=== PATIENT | male | born 1970 | race Caucasian/White ===

== ENCOUNTER 2024-11-26 22:19 | Inpatient (IN) | payer BC ==
[~2024-11-26] VITALS: Ht 177.8 cm; Wt 90.0 kg
[2024-11-27] MEDS: MORPHINE SULFATE 4 MG/ML INJ (FOR IV/IM USE) IV STA (00:30)
[2024-11-27] MEDS: PANTOPRAZOLE SODIUM 40 MG/VIAL IV STA (00:30)
[2024-11-27] MEDS: ONDANSETRON HCL 4MG/2ML INJ IV STA (00:30)
[2024-11-27] MEDS: LABETALOL 5MG/ML 4ML INJ IV ONE (00:31)
[2024-11-27 00:50] LABS: BASOPHILS % 1.3 % (0.0-2.0); EOSINOPHILS % 0.1 % (0.0-5.0); HEMATOCRIT. 35.4 % (42.0-52.0); HEMOGLOBIN. 12.1 g/dL (14.0-18.0); LYMPHOCYTES % 8.7 % (20.0-50.0); MEAN CORPUSCULAR HEMOGLOBIN 27.8 pg (28.0-32.0); MEAN CORPUSCULAR HGB CONC 34.2 g/dL (31.0-37.0); MEAN CORPUSCULAR VOLUME 81.4 fL (80.0-94.0); MEAN PLATELET VOLUME 9.7 fl (7.4-10.4); MONOCYTES % 4.6 % (2.0-8.0); NEUTROPHILS % 85.3 % (40.0-76.0); PLATELET 343 x1000/uL (130-400); RED BLOOD CELL COUNT 4.35 mill/uL (4.7-6.1); RED CELL DISTRIBUTION WIDTH 13.7 % (11.6-14.6); WHITE BLOOD COUNT 14.2 x1000/uL (4.5-11.0)
[2024-11-27 00:52] LABS: CHLORIDE 111 mEq/L (98-107); POTASSIUM 3.3 mEq/L (3.5-5.1); SODIUM 145 mEq/L (136-145)
[2024-11-27 00:53] LABS: CALCIUM 8.6 mg/dL (8.7-10.4); CARBON DIOXIDE 26 mEq/L (21-32)
[2024-11-27 00:58] LABS: CREATININE 1.9 mg/dL (0.6-1.3); GLUCOSE 131 mg/dL (70-105); UREA NITROGEN BLOOD 16 mg/dL (9-23)
[2024-11-27 00:59] LABS: TROPONIN I HIGH SENSITIVITY 29 ng/L (3.0-53)
[2024-11-27 01:00] LABS: ALANINE AMINOTRANSFERASE 14 IU/L (10-49); ALBUMIN 3.4 g/dL (3.2-4.8); ASPARTATE AMINOTRANSFERASE 21 IU/L (<34); BILIRUBIN DIRECT 0.1 mg/dL (<=3.0); BILIRUBIN TOTAL 0.5 mg/dL (0.1-1.0); PROTEIN TOTAL 5.4 g/dL (6.0-8.3)
[2024-11-27 01:14] LABS: INR 0.9; PROTHROMBIN TIME 10.2 sec (9.6-11.0)
[2024-11-27 01:35] LABS: TROPONIN I HIGH SENSITIVITY 32 ng/L (3.0-53)
[2024-11-27] MEDS: IOHEXOL-300 100 ML BOTTLE ONE (03:18)
[2024-11-27 03:43] LABS: CLARITY URINE CLEAR (CLEAR); COLOR URINE YELLOW (YELLOW); GLUCOSE URINE TRACE (NEGATIVE); KETONES URINE NEGATIVE (NEGATIVE); LEUKOCYTE ESTERASE URINE NEGATIVE (NEGATIVE); NITRITE URINE NEGATIVE (NEGATIVE); OCCULT BLOOD URINE 2+ (NEGATIVE); PH URINE 6.5 (4.5-8.0); PROTEIN URINE 4+ (NEGATIVE); SPECIFIC GRAVITY URINE 1.039 (1.005-1.030); UROBILINOGEN URINE 0.2 E.U./dL (0.2-1.0)
[2024-11-27] MEDS ORDERED: ONDANSETRON HCL 4MG/2ML INJ IV PRN (05:00)
[2024-11-27] MEDS ORDERED: IPRATROPIUM/ALBUTEROL 0.5-3(2.5)MG/3ML NEB HHN PRN (05:00)
[2024-11-27] MEDS ORDERED: NITROGLYCERIN 0.4MG TABLET SL SL PRN (05:30)
[2024-11-27] MEDS ORDERED: LABETALOL 5MG/ML 4ML INJ IV PRN (05:30)
[2024-11-27] MEDS: HYDRALAZINE 20MG/ML VIAL IV PRN (05:34)
[2024-11-27] MEDS: MORPHINE SULFATE 2 MG/ML INJ (NOT FOR IM USE) IV NR ×2 (05:35→09:27)
[2024-11-27] MEDS: KCL 20MEQ/100ML PREMIX 100 ML IV NR (05:41)
[2024-11-27 05:45] LABS: AMYLASE 60 IU/L (30-118); CREATINE KINASE MB FRACTION 0.9 ng/mL (0.5-3.6)
[2024-11-27 05:47] LABS: ETHANOL BLOOD < 10 mg/dL (<10)
[2024-11-27 05:48] LABS: BACTERIA URINE NONE SEEN; RBC URINE 0-2 /hpf (0-2); SQUAMOUS EPITHELIAL CELL URINE NONE SEEN /lpf (RARE/1+)
[2024-11-27 05:49] LABS: FINE GRANULAR CASTS URINE 0-5 /lpf; HYALINE CASTS URINE 0-5 /lpf
[2024-11-27] MEDS: LACTATED RINGERS 1,000 ML IV SCH (05:51)
[2024-11-27] MEDS: CEFTRIAXONE 1GM/50ML 50 ML IV SCH (06:38)
[2024-11-27] MEDS: IOHEXOL-350 100 ML BOTTLE ONE (07:19)
[2024-11-27] MEDS ORDERED: PANTOPRAZOLE SODIUM 40 MG/VIAL IV SCH (09:00)
[2024-11-27] MEDS: LABETALOL 5MG/ML 4ML INJ IV NR (09:32)
[2024-11-27 10:00] VITALS: BP 163/106; PULSE 88; RESP 17; TEMP 36.8072
[2024-11-27] MEDS: CLONIDINE 0.1MG TABLET PO SCH (10:25)
[2024-11-27] MEDS: PANTOPRAZOLE SODIUM 40 MG/VIAL IV SCH (10:26)
[2024-11-27] MEDS ORDERED: OMEP20CA14 MT (11:39)
[2024-11-27] MEDS ORDERED: FURO40TA5 MT (11:39)
[2024-11-27] MEDS ORDERED: ATOR10TA69 MT (11:39)
[2024-11-27] MEDS ORDERED: AMLO10TA80 MT (11:39)
[2024-11-27] MEDS ORDERED: CLON0.3T MT (11:39)
[2024-11-27] MEDS ORDERED: LISI40TA13 MT (11:39)
[2024-11-27 12:00] VITALS: BP 151/91; PULSE 75; RESP 18; TEMP 36.72516; O2SAT 96
[2024-11-27] MEDS ORDERED: KETOROLAC 15MG/ML VIAL IV PRN (12:45)
[2024-11-27 16:15] LABS: *AMPHETAMINES SCREEN URINE NEGATIVE (NEGATIVE); *BARBITURATES SCREEN URINE NEGATIVE (NEGATIVE); *BENZODIAZEPINES SCREEN URINE NEGATIVE (NEGATIVE); *COCAINE SCREEN URINE NEGATIVE (NEGATIVE)
[2024-11-27 16:16] LABS: CANNABINOID URINE SCREEN NEGATIVE (NEGATIVE); ECSTASY MDMA SCREEN URINE NEGATIVE (NEGATIVE); METHADONE URINE SCREEN NEGATIVE (NEGATIVE); OPIATES URINE SCREEN PRESUMPTIVE POSITIVE (NEGATIVE); PHENCYCLIDINE URINE SCREEN NEGATIVE (NEGATIVE)
[2024-11-27 16:17] LABS: CREATINE KINASE MB FRACTION 0.7 ng/mL (0.5-3.6)
[2024-11-27 16:30] VITALS: BP 169/106; PULSE 72; RESP 14; TEMP 36.83628; O2SAT 97
[2024-11-27 16:34] LABS: HEPATITIS B SURFACE ANTIGEN NEGATIVE (Negative)
[2024-11-27 16:55] LABS: HEPATITIS C AB NON REACTIVE (Neg) (Negative)
[2024-11-27] MEDS ORDERED: PNEUMOCOCCAL 20-VAL CONJ-DIP CRM 0.5ML IM ONE (18:00)
[2024-11-27] MEDS ORDERED: INFLUENZA VACCINE 05/PF 0.5 ML SYRINGE IM ONE (18:00)
[2024-11-27] MEDS: LOSARTAN 50 MG TABLET PO SCH (18:46)
[2024-11-27] MEDS: ACETAMINOPHEN 325MG TABLET PO PRN (18:55)
[2024-11-27 20:00] VITALS: BP 160/99; PULSE 72; RESP 15; TEMP 36.61404; O2SAT 97
[2024-11-28] VITALS (7 sets, daily range): BP systolic 157–187; BP diastolic 95–110; PULSE 64–88; RESP 11–18; TEMP 36.72516–36.9474; O2SAT 97–100
[2024-11-28] MEDS: CEFTRIAXONE 1GM/50ML 50 ML IV SCH (06:15)
[2024-11-28 07:22] LABS: POTASSIUM 3.8 mEq/L (3.5-5.1)
[2024-11-28 07:23] LABS: CALCIUM 8.3 mg/dL (8.7-10.4)
[2024-11-28 07:28] LABS: CREATININE 1.9 mg/dL (0.6-1.3)
[2024-11-28 07:29] LABS: AMYLASE 57 IU/L (30-118)
[2024-11-28 07:33] LABS: T4 FREE 0.79 ng/dL (0.89-1.76); THYROID STIMULATING HORMONE 9.98 uIU/mL (0.55-4.78)
[2024-11-28 08:23] LABS: BASOPHILS % 2.1 % (0.0-2.0); EOSINOPHILS % 2.7 % (0.0-5.0); HEMATOCRIT. 32.3 % (42.0-52.0); HEMOGLOBIN. 10.9 g/dL (14.0-18.0); LYMPHOCYTES % 18.5 % (20.0-50.0); MEAN CORPUSCULAR HEMOGLOBIN 27.9 pg (28.0-32.0); MEAN CORPUSCULAR HGB CONC 33.9 g/dL (31.0-37.0); MEAN CORPUSCULAR VOLUME 82.2 fL (80.0-94.0); MEAN PLATELET VOLUME 9.9 fl (7.4-10.4); MONOCYTES % 8.4 % (2.0-8.0); NEUTROPHILS % 68.3 % (40.0-76.0); PLATELET 268 x1000/uL (130-400); RED BLOOD CELL COUNT 3.92 mill/uL (4.7-6.1); WHITE BLOOD COUNT 8.4 x1000/uL (4.5-11.0)
[2024-11-28] MEDS: AMLODIPINE 10MG TABLET PO SCH (08:24)
[2024-11-28] MEDS: LABETALOL 5MG/ML 4ML INJ IV NR (18:19)
[2024-11-28] MEDS: HYDRALAZINE HCL 50MG TABLET PO SCH (22:28)
[2024-11-29] VITALS: BP 154/85; PULSE 88; RESP 18; TEMP 36.78072; O2SAT 98
[2024-11-29] MEDS ORDERED: IOHEXOL-300 100 ML BOTTLE ONE (00:07)
[2024-11-29 04:00] VITALS: BP 156/83; PULSE 75; RESP 16; TEMP 37.00296; O2SAT 97
[2024-11-29 06:00] VITALS: BP 141/87; PULSE 89; RESP 23; TEMP 36.89184; O2SAT 95
[2024-11-29] MEDS ORDERED: HYDR100T11 MT (07:40)
[2024-11-29 07:42] LABS: POTASSIUM 3.4 mEq/L (3.5-5.1)
[2024-11-29 07:44] LABS: CALCIUM 8.1 mg/dL (8.7-10.4)
[2024-11-29 07:48] LABS: CREATININE 1.8 mg/dL (0.6-1.3)
[2024-11-29 07:49] LABS: BASOPHILS % 1.4 % (0.0-2.0); EOSINOPHILS % 2.1 % (0.0-5.0); HEMATOCRIT. 31.8 % (42.0-52.0); HEMOGLOBIN. 10.8 g/dL (14.0-18.0); LYMPHOCYTES % 16.8 % (20.0-50.0); MEAN CORPUSCULAR HEMOGLOBIN 27.7 pg (28.0-32.0); MEAN CORPUSCULAR HGB CONC 33.8 g/dL (31.0-37.0); MEAN CORPUSCULAR VOLUME 82.1 fL (80.0-94.0); MEAN PLATELET VOLUME 9.4 fl (7.4-10.4); MONOCYTES % 8.1 % (2.0-8.0); NEUTROPHILS % 71.6 % (40.0-76.0); PLATELET 296 x1000/uL (130-400); RED BLOOD CELL COUNT 3.88 mill/uL (4.7-6.1); RED CELL DISTRIBUTION WIDTH 13.9 % (11.6-14.6); WHITE BLOOD COUNT 8.8 x1000/uL (4.5-11.0)
[2024-11-29 08:00] VITALS: BP 127/75; PULSE 112; RESP 15; TEMP 36.6696; O2SAT 99
[2024-11-29] MEDS ORDERED: CLON-493 MT (09:28)
[2024-11-29 12:00] VITALS: BP 130/60; PULSE 105; RESP 18; TEMP 36.6696; TEMP 36.66960; O2SAT 98
[2024-11-29] MEDS ORDERED: HYDRALAZINE HCL 100MG TABLET PO SCH (14:00)
[2024-12-05] MEDS ORDERED: CLONIDINE HCL 0.1MG/24HR PATCH TD SCH (09:00)
== END 2024-11-29 13:09 | disposition home or self-care (01) | DRG 872 ==
LOC: ER 22:19 → 3WST 11-27 03:46
PROVIDERS: ADMIT Internal Medicine; ATTEND Internal Medicine
DX: A41.9 Sepsis, unspecified organism (principal); N17.9 Acute kidney failure, unspecified; I16.0 Hypertensive urgency; D64.9 Anemia, unspecified; E78.5 Hyperlipidemia, unspecified; E66.01 Morbid (severe) obesity due to excess calories; E87.6 Hypokalemia; K21.9 Gastro-esophageal reflux disease without esophagitis; Z68.30 Body mass index [BMI] 30.0-30.9, adult; I50.9 Heart failure, unspecified; I11.0 Hypertensive heart disease with heart failure; Z79.899 Other long term (current) drug therapy
CPT/HCPCS: 36415; 71045; 74174; 74177; 76770; 80048; 80076; 80305; 80320; 81003; 82150; 82550; 82553; 83605; 83880; 84145; 84439; 84443; 84478; 84484; 85025; 85379; 86705; 87340; 93005; 93306; 99285; J0360; J0696; J2270; J2405; J2470; J3480; J3490; Q9967; G0480

== ENCOUNTER 2025-07-14 01:06 | Inpatient (IN) | payer BC ==
[~2025-07-14] VITALS: Ht 175.3 cm; Wt 98.0 kg
[~2025-07-14 01:06] MED LIST: AMLO10TA80 MT; ATOR10TA69 MT; CLON-493 MT; CLON0.3T MT; FURO40TA5 MT; HYDR100T11 MT; LISI40TA21 MT; OMEP20CA14 MT
[2025-07-14 01:10] VITALS: O2SAT 99
[2025-07-14 01:44] LABS: CLARITY URINE CLOUDY (CLEAR); COLOR URINE YELLOW (YELLOW); GLUCOSE URINE TRACE (NEGATIVE); KETONES URINE TRACE (NEGATIVE); LEUKOCYTE ESTERASE URINE TRACE (NEGATIVE); NITRITE URINE NEGATIVE (NEGATIVE); OCCULT BLOOD URINE NEGATIVE (NEGATIVE); PH URINE 5.5 (4.5-8.0); PROTEIN URINE 4+ (NEGATIVE); SPECIFIC GRAVITY URINE 1.027 (1.005-1.030); UROBILINOGEN URINE 0.2 E.U./dL (0.2-1.0)
[2025-07-14] MEDS: ONDANSETRON HCL 4MG/2ML INJ IV ONE ×2 (02:07→05:37)
[2025-07-14] MEDS: MORPHINE SULFATE 4 MG/ML INJ (FOR IV/IM USE) IV ONE ×2 (02:07→05:37)
[2025-07-14 02:40] LABS: HEMATOCRIT. 34.3 % (42.0-52.0); HEMOGLOBIN. 11.6 g/dL (14.0-18.0); MEAN PLATELET VOLUME 10.3 fl (7.4-10.4); PLATELET 279 x1000/uL (130-400); RED BLOOD CELL COUNT 4.25 mill/uL (4.7-6.1); RED CELL DISTRIBUTION WIDTH 13.8 % (11.6-14.6)
[2025-07-14 02:52] LABS: TROPONIN I HIGH SENSITIVITY 31 ng/L (3.0-53); UREA NITROGEN BLOOD 30 mg/dL (9-23)
[2025-07-14 02:54] LABS: ASPARTATE AMINOTRANSFERASE 37 IU/L (<34)
[2025-07-14 02:55] LABS: BILIRUBIN DIRECT 0.2 mg/dL (<=3.0); BILIRUBIN TOTAL 0.8 mg/dL (0.1-1.0); PROTEIN TOTAL 5.3 g/dL (6.0-8.3)
[2025-07-14] MEDS: SODIUM CHLORIDE 0.9% (SEPSIS BOLUS) IV ONE (03:09)
[2025-07-14] MEDS: PIPERACILLIN/TAZO 3.375G/50ML 50 ML IV ONE (03:11)
[2025-07-14 03:31] LABS: CREATININE 2.4 mg/dL (0.6-1.3)
[2025-07-14] MEDS: VANCOMYCIN 1G PREMIX 200 ML IV ONE (03:42)
[2025-07-14 03:43] LABS: TROPONIN I HIGH SENSITIVITY 32 ng/L (3.0-53)
[2025-07-14 04:07] LABS: RBC URINE 0-2 /hpf (0-2)
[2025-07-14 04:09] LABS: BACTERIA URINE TRACE; SQUAMOUS EPITHELIAL CELL URINE NONE SEEN /lpf (RARE/1+)
[2025-07-14 04:10] LABS: HYALINE CASTS URINE 0-5 /lpf
[2025-07-14 05:23] LABS: BAND% 1.0 % (1.0-6.0); LYMPHOCYTES % MANUAL 9.0 % (20.0-50.0); MONOCYTES % MANUAL 1.0 % (2.0-8.0); NEUTROPHILS % MANUAL 89.0 % (45.0-75.0)
[2025-07-14 05:24] LABS: PLATELET ESTIMATE NORMAL
[2025-07-14 08:35] VITALS: BP 158/96; PULSE 92; RESP 18; TEMP 36.7; TEMP 36.7516; O2SAT 97
[2025-07-14] MEDS ORDERED: MORPHINE SULFATE 2 MG/ML INJ (NOT FOR IM USE) IV PRN (10:00)
[2025-07-14] MEDS ORDERED: IPRATROPIUM/ALBUTEROL 0.5-3(2.5)MG/3ML NEB NEB PRN (10:00)
[2025-07-14] MEDS ORDERED: ENOXAPARIN 40MG/0.4ML SYR SUBCUT SCH (10:00)
[2025-07-14] MEDS ORDERED: ONDANSETRON HCL 4MG/2ML INJ IV PRN (10:00)
[2025-07-14] MEDS ORDERED: ACETAMINOPHEN 650MG/20.3ML UDC GT PRN (10:00)
[2025-07-14] MEDS ORDERED: METR-167 PO (10:02)
[2025-07-14] MEDS ORDERED: FERR325T6 MT (10:02)
[2025-07-14] MEDS ORDERED: TETR-65 PO (10:02)
[2025-07-14] MEDS ORDERED: CLON0.2T PO (10:02)
[2025-07-14] MEDS: ENOXAPARIN 30MG/0.3ML SYR SUBCUT SCH (10:19)
[2025-07-14] MEDS: SODIUM CHLORIDE 0.9% 1,000 ML IV SCH (10:20)
[2025-07-14] MEDS ORDERED: NALOXONE HCL 0.4MG/ML VIAL IV PRN (10:45)
[2025-07-14] MEDS: FUROSEMIDE 40MG/4 ML UDC PO SCH (11:45)
[2025-07-14] MEDS: AMLODIPINE 10MG TABLET PO SCH (11:45)
[2025-07-14] MEDS: VANCOMYCIN 1GM PMX (XELLIA) 200 ML IV SCH (11:45)
[2025-07-14] MEDS: CLONIDINE 0.2MG TABLET PO SCH (11:45)
[2025-07-14] MEDS: PANTOPRAZOLE 40MG DR TABLET PO SCH (11:49)
[2025-07-14 12:01] VITALS: BP 171/98; PULSE 91; RESP 20; TEMP 36.8; O2SAT 97
[2025-07-14 12:50] LABS: CLARITY URINE CLEAR (CLEAR); COLOR URINE YELLOW (YELLOW); GLUCOSE URINE NEGATIVE (NEGATIVE); KETONES URINE NEGATIVE (NEGATIVE); LEUKOCYTE ESTERASE URINE NEGATIVE (NEGATIVE); NITRITE URINE NEGATIVE (NEGATIVE); OCCULT BLOOD URINE TRACE (NEGATIVE); PH URINE 5.5 (4.5-8.0); PROTEIN URINE 4+ (NEGATIVE); SPECIFIC GRAVITY URINE 1.021 (1.005-1.030); UROBILINOGEN URINE 0.2 E.U./dL (0.2-1.0)
[2025-07-14 13:23] LABS: TRIGLYCERIDE 268.0 mg/dL (0-150)
[2025-07-14 13:24] LABS: LDL CHOLESTEROL 52.0 mg/dL (5-100)
[2025-07-14 13:30] VITALS: BP 122/79; PULSE 78; RESP 18; O2SAT 98
[2025-07-14 13:45] LABS: BACTERIA URINE NONE SEEN; RBC URINE 0-2 /hpf (0-2); SQUAMOUS EPITHELIAL CELL URINE RARE /lpf (RARE/1+); WBC URINE 0-2 /hpf (0-2); YEAST URINE NONE SEEN
[2025-07-14 16:05] VITALS: BP 143/90; PULSE 74; RESP 18; TEMP 36.8; O2SAT 98
[2025-07-14 20:00] VITALS: BP 146/87; PULSE 69; RESP 18; TEMP 36.2; O2SAT 97
[2025-07-15] VITALS (8 sets, daily range): BP systolic 108–138; BP diastolic 60–83; PULSE 54–65; RESP 18–20; TEMP 36.2–37.2; O2SAT 97–99
[2025-07-15 09:31] LABS: BASOPHILS % 1.7 % (0.0-2.0); EOSINOPHILS % 4.6 % (0.0-5.0); HEMATOCRIT. 29.4 % (42.0-52.0); HEMOGLOBIN. 9.9 g/dL (14.0-18.0); LYMPHOCYTES % 20.3 % (20.0-50.0); MEAN PLATELET VOLUME 10.4 fl (7.4-10.4); MONOCYTES % 7.9 % (2.0-8.0); NEUTROPHILS % 65.5 % (40.0-76.0); PLATELET 173 x1000/uL (130-400); RED BLOOD CELL COUNT 3.52 mill/uL (4.7-6.1); RED CELL DISTRIBUTION WIDTH 13.8 % (11.6-14.6)
[2025-07-15 09:45] LABS: CREATININE 2.1 mg/dL (0.6-1.3)
[2025-07-15 09:46] LABS: UREA NITROGEN BLOOD 23 mg/dL (9-23)
[2025-07-15 09:47] LABS: ASPARTATE AMINOTRANSFERASE 29 IU/L (<34)
[2025-07-15 09:48] LABS: BILIRUBIN TOTAL 0.6 mg/dL (0.1-1.0); PROTEIN TOTAL 4.5 g/dL (6.0-8.3)
[2025-07-15] MEDS: VANCOMYCIN 1GM PMX (XELLIA) 200 ML IV SCH (14:33)
[2025-07-15] MEDS: CEFTRIAXONE 1GM/50ML 50 ML IV SCH (15:39)
[2025-07-15] MEDS: ACETAMINOPHEN 325MG TABLET PO PRN (21:23)
[2025-07-15] MEDS: METRONIDAZOLE 500MG TABLET PO SCH (21:23)
[2025-07-16] VITALS: BP 138/79; PULSE 59; RESP 18; TEMP 36.3; O2SAT 96
[2025-07-16 04:00] VITALS: BP 121/69; PULSE 61; RESP 18; TEMP 36.6; O2SAT 98
[2025-07-16 08:00] VITALS: BP 126/69; PULSE 62; RESP 19; TEMP 36.4; O2SAT 97
[2025-07-16 08:12] LABS: CREATININE 2.0 mg/dL (0.6-1.3); UREA NITROGEN BLOOD 21 mg/dL (9-23)
[2025-07-16 08:13] LABS: BASOPHILS % 2.2 % (0.0-2.0); EOSINOPHILS % 8.7 % (0.0-5.0); HEMATOCRIT. 27.7 % (42.0-52.0); HEMOGLOBIN. 9.3 g/dL (14.0-18.0); LYMPHOCYTES % 30.2 % (20.0-50.0); MEAN PLATELET VOLUME 10.2 fl (7.4-10.4); MONOCYTES % 10.7 % (2.0-8.0); NEUTROPHILS % 48.2 % (40.0-76.0); PLATELET 161 x1000/uL (130-400); RED BLOOD CELL COUNT 3.35 mill/uL (4.7-6.1); RED CELL DISTRIBUTION WIDTH 13.3 % (11.6-14.6)
[2025-07-16 08:14] LABS: ASPARTATE AMINOTRANSFERASE 26 IU/L (<34); BILIRUBIN TOTAL 0.4 mg/dL (0.1-1.0); PROTEIN TOTAL 4.4 g/dL (6.0-8.3)
[2025-07-16 12:00] VITALS: BP 131/67; PULSE 66; RESP 18; TEMP 36.4; O2SAT 96
[2025-07-16] MEDS ORDERED: METR-167 PO (12:40)
[2025-07-16 14:18] VITALS: BP 124/64; PULSE 75; RESP 18; TEMP 97.5
[2025-07-16 16:00] VITALS: BP 124/77; PULSE 62; RESP 18; TEMP 36.6; O2SAT 96
== END 2025-07-16 18:24 | disposition home or self-care (01) | DRG 438 ==
LOC: ER 01:06 → 7WST 04:11 → EDBEDREQTM 05:12 → EDBEDREQ 05:12 → ENRESERV 08:19
PROVIDERS: ADMIT Internal Medicine; ATTEND Internal Medicine
DX: K85.90 Acute pancreatitis without necrosis or infection, unspecified (principal); N18.6 End stage renal disease; I12.0 Hypertensive chronic kidney disease with stage 5 chronic kidney disease or end stage renal disease; R07.89 Other chest pain; Z79.899 Other long term (current) drug therapy; Z88.0 Allergy status to penicillin
CPT/HCPCS: 36415; 71045; 74176; 80048; 80053; 80061; 80076; 81003; 83036; 83605; 84145; 84443; 84484; 85025; 87015; 87045; 87427; 87449; 93005; 99291; J0696; J1650; J1940; J2270; J2405; J2543; J3373; J7030

== ENCOUNTER 2025-07-18 04:54 | Inpatient (IN) | payer BC ==
[~2025-07-18] VITALS: Ht 175.3 cm; Wt 90.7 kg
[~2025-07-18 04:54] MED LIST changes: -CLON-493 MT; +CLON0.2T PO; -CLON0.3T MT; +FERR325T6 MT; -HYDR100T11 MT; -LISI40TA21 MT; +METR-167 PO
[2025-07-18 04:56] VITALS: O2SAT 100
[2025-07-18 06:04] LABS: BASOPHILS % 1.3 % (0.0-2.0); EOSINOPHILS % 0.3 % (0.0-5.0); HEMATOCRIT. 33.4 % (42.0-52.0); HEMOGLOBIN. 11.4 g/dL (14.0-18.0); LYMPHOCYTES % 11.8 % (20.0-50.0); MEAN PLATELET VOLUME 9.9 fl (7.4-10.4); MONOCYTES % 6.0 % (2.0-8.0); NEUTROPHILS % 80.6 % (40.0-76.0); PLATELET 267 x1000/uL (130-400); RED BLOOD CELL COUNT 4.07 mill/uL (4.7-6.1); RED CELL DISTRIBUTION WIDTH 13.6 % (11.6-14.6)
[2025-07-18] MEDS: FAMOTIDINE 20MG/2ML VIAL IV ONE (06:22)
[2025-07-18] MEDS: VISCOUS LIDOCAINE 2% 15 ML UDC MM ONE (06:22)
[2025-07-18] MEDS: MAGNESIUM/ALUMINUM HYDROXIDE/SIMETHICONE 30ML UDC PO ONE (06:23)
[2025-07-18] MEDS: ONDANSETRON HCL 4MG/2ML INJ IV ONE (06:23)
[2025-07-18] MEDS: MORPHINE SULFATE 4 MG/ML INJ (FOR IV/IM USE) IV ONE (06:24)
[2025-07-18 06:25] LABS: CREATININE 1.9 mg/dL (0.6-1.3); UREA NITROGEN BLOOD 20 mg/dL (9-23)
[2025-07-18 06:26] LABS: TROPONIN I HIGH SENSITIVITY 20 ng/L (3.0-53)
[2025-07-18 06:27] LABS: ASPARTATE AMINOTRANSFERASE 40 IU/L (<34); BILIRUBIN DIRECT 0.1 mg/dL (<=3.0); BILIRUBIN TOTAL 0.5 mg/dL (0.1-1.0)
[2025-07-18 06:28] LABS: PROTEIN TOTAL 5.7 g/dL (6.0-8.3)
[2025-07-18 09:02] LABS: CLARITY URINE CLEAR (CLEAR); COLOR URINE YELLOW (YELLOW); GLUCOSE URINE TRACE (NEGATIVE); KETONES URINE TRACE (NEGATIVE); LEUKOCYTE ESTERASE URINE NEGATIVE (NEGATIVE); NITRITE URINE NEGATIVE (NEGATIVE); OCCULT BLOOD URINE TRACE (NEGATIVE); PH URINE 6.5 (4.5-8.0); PROTEIN URINE 4+ (NEGATIVE); SPECIFIC GRAVITY URINE 1.029 (1.005-1.030); UROBILINOGEN URINE 0.2 E.U./dL (0.2-1.0)
[2025-07-18 09:25] LABS: COARSE GRANULAR CASTS URINE 0-5 /lpf; HYALINE CASTS URINE TNTC /lpf; RBC URINE 0-2 /hpf (0-2)
[2025-07-18 09:26] LABS: BACTERIA URINE 2+; WAXY CASTS URINE 0-5 /lpf
[2025-07-18 09:28] LABS: MUCUS URINE 1+ /lpf (NONE/TRACE); SQUAMOUS EPITHELIAL CELL URINE RARE /lpf (RARE/1+)
[2025-07-18 10:06] VITALS: BP 171/95; PULSE 70; RESP 18; TEMP 36.1; O2SAT 99
[2025-07-18 10:07] VITALS: BP 175/99; PULSE 70; RESP 18; TEMP 36.1; O2SAT 99
[2025-07-18 10:28] VITALS: BP 171/100; PULSE 75; RESP 18; TEMP 36.14
[2025-07-18] MEDS: ONDANSETRON HCL 4MG/2ML INJ IV PRN (14:43)
[2025-07-18] MEDS: SODIUM CHLORIDE 0.9% 1,000 ML IV SCH (14:43)
[2025-07-18] MEDS ORDERED: HYDRALAZINE 20MG/ML VIAL IV PRN (15:30)
[2025-07-18 16:00] VITALS: BP 178/92; PULSE 86; RESP 20; TEMP 37; O2SAT 100
[2025-07-18] MEDS ORDERED: ACETAMINOPHEN 650MG/20.3ML UDC PO PRN ×2 (16:30)
[2025-07-18] MEDS: CLONIDINE 0.2MG TABLET PO SCH (17:21)
[2025-07-18] MEDS: SUCRALFATE 1G TABLET PO SCH (17:22)
[2025-07-18] MEDS: AMLODIPINE 10MG TABLET PO SCH (18:40)
[2025-07-18] MEDS: FUROSEMIDE 40MG TABLET PO SCH (18:41)
[2025-07-18 20:00] VITALS: BP 122/73; PULSE 58; RESP 18; TEMP 36.8; O2SAT 98
[2025-07-18] MEDS ORDERED: DEXTROSE 50% WATER 50ML SYRINGE IV PRN (20:00)
[2025-07-18] MEDS: INSULIN LISPRO 100 UNITS/ML SUBCUT SCH (21:00)
[2025-07-18] MEDS: ATORVASTATIN CALCIUM 10MG TABLET PO SCH (21:18)
[2025-07-18] MEDS: METOCLOPRAMIDE HCL 5MG TABLET PO SCH (21:19)
[2025-07-18] MEDS: BLOOD SUGAR DIAGNOSTIC STRIP TEST SCH (21:19)
[2025-07-18] MEDS: ENOXAPARIN 30MG/0.3ML SYR SUBCUT SCH (21:20)
[2025-07-18] MEDS ORDERED: TETR-65 MT (21:24)
[2025-07-19] VITALS: BP 113/76; PULSE 57; RESP 18; TEMP 36.7; O2SAT 98
[2025-07-19 04:00] VITALS: BP 119/78; PULSE 56; RESP 18; TEMP 36.2; O2SAT 98
[2025-07-19 06:38] LABS: BASOPHILS % 2.3 % (0.0-2.0); EOSINOPHILS % 6.1 % (0.0-5.0); HEMATOCRIT. 25.2 % (42.0-52.0); HEMOGLOBIN. 8.6 g/dL (14.0-18.0); LYMPHOCYTES % 31.0 % (20.0-50.0); MEAN PLATELET VOLUME 9.6 fl (7.4-10.4); MONOCYTES % 11.1 % (2.0-8.0); NEUTROPHILS % 49.5 % (40.0-76.0); PLATELET 171 x1000/uL (130-400); RED BLOOD CELL COUNT 3.07 mill/uL (4.7-6.1); RED CELL DISTRIBUTION WIDTH 13.7 % (11.6-14.6)
[2025-07-19 07:00] LABS: CREATININE 2.1 mg/dL (0.6-1.3); UREA NITROGEN BLOOD 16 mg/dL (9-23)
[2025-07-19 07:02] LABS: ASPARTATE AMINOTRANSFERASE 34 IU/L (<34); BILIRUBIN TOTAL 0.4 mg/dL (0.1-1.0); PROTEIN TOTAL 4.1 g/dL (6.0-8.3)
[2025-07-19 08:30] VITALS: BP 137/88; PULSE 61; RESP 19; TEMP 37.1; O2SAT 98
[2025-07-19] MEDS: FAMOTIDINE 20MG/2ML VIAL IV SCH (09:36)
[2025-07-19] MEDS: METOCLOPRAMIDE HCL 10MG TABLET ONE (11:34)
[2025-07-19 12:30] VITALS: BP 137/7; PULSE 62; RESP 19; TEMP 36.3; O2SAT 97
[2025-07-19] MEDS ORDERED: SUCR1TAB30 MT (14:34)
[2025-07-19 20:00] VITALS: BP 160/94; PULSE 61; RESP 18; TEMP 36.3; O2SAT 97
[2025-07-19] MEDS ORDERED: METOCLOPRAMIDE HCL 10MG/2ML VIAL ONE (21:38)
[2025-07-19] MEDS ORDERED: METOCLOPRAMIDE HCL 10MG TABLET ONE (21:52)
[2025-07-20] VITALS: BP 159/89; PULSE 68; RESP 18; TEMP 36.1
[2025-07-20 04:00] VITALS: BP 136/85; PULSE 65; RESP 18; TEMP 36.2
[2025-07-20 08:00] VITALS: BP 132/82; PULSE 60; RESP 18; TEMP 36.3; O2SAT 99
[2025-07-20 08:54] LABS: BASOPHILS % 2.7 % (0.0-2.0); EOSINOPHILS % 7.5 % (0.0-5.0); HEMATOCRIT. 26.2 % (42.0-52.0); HEMOGLOBIN. 8.8 g/dL (14.0-18.0); LYMPHOCYTES % 31.3 % (20.0-50.0); MEAN PLATELET VOLUME 10.0 fl (7.4-10.4); MONOCYTES % 9.2 % (2.0-8.0); NEUTROPHILS % 49.3 % (40.0-76.0); PLATELET 192 x1000/uL (130-400); RED BLOOD CELL COUNT 3.18 mill/uL (4.7-6.1); RED CELL DISTRIBUTION WIDTH 13.4 % (11.6-14.6)
[2025-07-20 08:59] LABS: INR 0.9
[2025-07-20 09:19] LABS: CREATININE 1.9 mg/dL (0.6-1.3); UREA NITROGEN BLOOD 20 mg/dL (9-23)
[2025-07-20 09:21] LABS: PHOSPHORUS 3.0 mg/dL (2.5-4.9)
[2025-07-20 12:00] VITALS: BP 129/80; PULSE 61; RESP 19; TEMP 36.4; O2SAT 98
[2025-07-20] MEDS ORDERED: SIMETHICONE 40 MG/0.6 ML 15ML ONE (12:02)
[2025-07-20] MEDS ORDERED: PROPOFOL 200MG/20ML VIAL IV ONE ×4 (12:12→12:13)
[2025-07-20] MEDS ORDERED: EPHEDRINE SULFATE 50MG/ML VIAL ONE ×2 (12:14)
[2025-07-20] MEDS ORDERED: MAGNESIUM HYDROXIDE 400MG/5ML 30ML UDC PO PRN (12:30)
[2025-07-20 16:00] VITALS: BP 134/86; PULSE 59; RESP 18; TEMP 36.8; O2SAT 99
[2025-07-20 19:38] LABS: HEPATITIS A AB IGM NEGATIVE (Negative); HEPATITIS B CORE AB IGM NEGATIVE (Negative)
[2025-07-20 19:39] LABS: HEPATITIS C AB NON REACTIVE (Neg) (Negative)
[2025-07-20 20:00] VITALS: BP 143/88; PULSE 74; RESP 18; TEMP 36.5; O2SAT 95
[2025-07-21] VITALS: BP 135/79; PULSE 68; RESP 20; TEMP 36.2; O2SAT 99
[2025-07-21 04:00] VITALS: BP 146/90; PULSE 55; RESP 20; TEMP 36.8; O2SAT 97
[2025-07-21 08:30] VITALS: BP 152/86; PULSE 65; RESP 18; TEMP 36.4; O2SAT 96
[2025-07-21 09:28] VITALS: BP 152/86; PULSE 65; RESP 18; TEMP 97.5
== END 2025-07-21 10:15 | disposition home or self-care (01) | DRG 391 ==
LOC: ER 04:54 → EDBEDREQ 07:25 → 8WST 08:27
PROVIDERS: ADMIT Internal Medicine; ATTEND Internal Medicine
PROC: 0DB78ZX Excision of Stomach, Pylorus, Via Natural or Artificial Opening Endoscopic, Diagnostic (ICD-10-PCS; principal; 2025-07-20)
DX: K29.70 Gastritis, unspecified, without bleeding (principal); N18.6 End stage renal disease; I12.0 Hypertensive chronic kidney disease with stage 5 chronic kidney disease or end stage renal disease; N17.9 Acute kidney failure, unspecified; E87.0 Hyperosmolality and hypernatremia; K21.9 Gastro-esophageal reflux disease without esophagitis; E78.5 Hyperlipidemia, unspecified; K44.9 Diaphragmatic hernia without obstruction or gangrene; R16.0 Hepatomegaly, not elsewhere classified; D64.9 Anemia, unspecified; N18.9 Chronic kidney disease, unspecified; D72.829 Elevated white blood cell count, unspecified; Z79.899 Other long term (current) drug therapy; Z87.440 Personal history of urinary (tract) infections; Z88.0 Allergy status to penicillin
CPT/HCPCS: 36415; 71045; 76705; 80048; 80053; 80076; 81003; 82962; 83036; 83540; 83550; 83735; 84100; 84484; 85025; 86705; 86709; 87340; 88305; 88312; 88313; 93005; 96374; 96375; 99285; A4606; J1308; J1650; J1815; J2270; J2405; J2704; J2765; J3490; J7030; J8597